=== PATIENT | male | born 2000 | race African-American/Black ===

== ENCOUNTER 2022-06-11 12:14 | Emergency (ER) | payer OTHER ==
[~2022-06-11] VITALS: Ht 172.7 cm; Wt 85.0 kg
[2022-06-11] MEDS ORDERED: ALBU8.5H INH (12:29)
[2022-06-11] MEDS ORDERED: IBUPROFEN 800 MG TAB PO ONE (14:55)
[2022-06-11 15:27] LABS: BASO % 0.5 % (0.0-1.0); EOS % 0.1 % (0.0-3.0); HEMATOCRIT 50.4 % (42.0-52.0); HEMOGLOBIN 15.4 g/dl (13.5-17.5); LYMPH # 1.9 10^3/uL (1.5-5.0); MEAN CORPUSCULAR HEMOGLOBIN 22.8 pg (27.0-33.0); MEAN CORPUSCULAR HGB CONC 30.6 g/dl (32.0-36.5); MEAN CORPUSCULAR VOLUME 74.7 fl (80.0-96.0); MONO # 0.4 10^3/uL (0.0-0.8); MONO % 5.4 % (2.0-8.0); NEUTROPHILS # 5.8 10^3/uL (1.5-8.5); NEUTROPHILS % 70.8 % (36.0-66.0); PLATELET COUNT, AUTOMATED 249 10^3/uL (150-450); RED BLOOD COUNT 6.75 10^6/uL (4.30-6.10); WHITE BLOOD COUNT 8.2 10^3/uL (4.0-10.0)
[2022-06-11 15:44] LABS: INR 1.23; PROTHROMBIN TIME 15.9 SECONDS (12.7-14.5)
[2022-06-11 15:47] LABS: D-DIMER QUANT 1835.39 ng/ml (<500)
[2022-06-11] MEDS ORDERED: ISOVUE-370 76% 100ML VIAL As Ordered ONE (15:53)
[2022-06-11 16:35] LABS: CK-MB VALUE MASS < 1.0 NG/ML (<3.6); CPK CREATINE PHOSPHOKINASE 135 U/L (39-308); MB/CK RELATIVE INDEX 0.74 (< OR =4)
[2022-06-11 18:50] LABS: CK-MB VALUE MASS < 1.0 NG/ML (<3.6); CPK CREATINE PHOSPHOKINASE 132 U/L (39-308); MB/CK RELATIVE INDEX 0.76 (< OR =4)
[2022-06-11] MEDS ORDERED: BENZ200C70 PO (19:27)
[2022-06-11 20:38] VITALS: BP 133/58
== END 2022-06-11 20:39 | disposition home or self-care (01) ==
LOC: M ED 12:14
DX: M94.0 Chondrocostal junction syndrome [Tietze] (principal); R07.89 Other chest pain; R79.1 Abnormal coagulation profile; I49.3 Ventricular premature depolarization; R05.9 Cough, unspecified; J45.909 Unspecified asthma, uncomplicated
CPT/HCPCS: 71046; 71275; 80047; 82550; 82553; 84484; 85025; 85379; 85610; 87428; 93005; 93041; 94760; 99284; Q9967